=== PATIENT | male | born 1955 | race Caucasian/White ===

== ENCOUNTER 2019-07-10 06:12 | Day surgery (SDC) | payer MEDICAID ==
[~2019-07-10] VITALS: Ht 188 cm; Wt 108.9 kg
[~2019-07-10 06:12] MED LIST: ARIP15TA6 PO; ASPI-404 PO; ESOM20CA PO; GABA800T97 PO; TAMS0.4C36 PO
[2019-07-10] MEDS ORDERED: ceFAZolin 1GM/50ML 100 ML IV ONE (06:50)
[2019-07-10] MEDS ORDERED: SUCCINYLCHOLINE CHLORIDE 20 MG/ML 10ML VIAL IV ONE (07:12)
[2019-07-10] MEDS ORDERED: LIDOCAINE 1% (LOCAL ANESTH.) PF 5ml SDV ONE (07:12)
[2019-07-10] MEDS ORDERED: BUPIVACAINE 0.25% INJ 50ML VIAL ONE (07:15)
[2019-07-10] MEDS ORDERED: methylPREDNISolone ACETATE 80 MG/ML VL ONE (07:15)
[2019-07-10] MEDS ORDERED: MIDAZOLAM HCL 1MG/1ML-2 ML VIAL ONE (07:18)
[2019-07-10] MEDS ORDERED: ROCURONIUM 10MG/ML 10ML VIAL IV ONE (07:18)
[2019-07-10] MEDS ORDERED: METOCLOPRAMIDE HCL 5MG/ml INJ 2ml VIAL ONE (07:18)
[2019-07-10] MEDS ORDERED: PROPOFOL 10 MG/ML 20 ML IV ONE (07:18)
[2019-07-10] MEDS ORDERED: fentaNYL CITRATE 100 MCG/2 ML VL ONE (07:29)
[2019-07-10] MEDS ORDERED: ONDANSETRON HCL 4 MG/2 ML VIAL IV PRN (07:45)
[2019-07-10] MEDS ORDERED: NALOXONE HCL 0.4 MG/ML VIAL IV PRN (07:45)
[2019-07-10] MEDS ORDERED: HYDROmorphone HCL 2 MG/ML VL IV PRN ×2 (07:45)
[2019-07-10] MEDS ORDERED: KETOROLAC TROMETH 30 MG/ML 1ML VIAL ONE (07:51)
[2019-07-10] MEDS ORDERED: NEOSTIGMINE 1 MG/ML INJ (10mg/10ML VIAL) ONE (08:05)
[2019-07-10] MEDS ORDERED: GLYCOPYRROLATE 0.2 MG/ML 1ML VIAL ONE (08:05)
[2019-07-10 09:12] VITALS: BP 130/89
== END 2019-07-10 09:45 | disposition home or self-care (01) ==
LOC: SUR 06:12
PROVIDERS: ATTEND Orthopaedic Surgery Adult Reconstructive Orthopaedic Surgery
DX: S83.272A Complex tear of lateral meniscus, current injury, left knee, initial encounter (principal); S83.242A Other tear of medial meniscus, current injury, left knee, initial encounter; Z11.59 Encounter for screening for other viral diseases; M17.12 Unilateral primary osteoarthritis, left knee; Z87.891 Personal history of nicotine dependence; Z98.890 Other specified postprocedural states; Z79.82 Long term (current) use of aspirin; Z79.899 Other long term (current) drug therapy; X58.XXXA Exposure to other specified factors, initial encounter; Y93.89 Activity, other specified; Y92.89 Other specified places as the place of occurrence of the external cause; Y99.8 Other external cause status
CPT/HCPCS: 29880; 87635; J0330; J0690; J1040; J1885; J2250; J2704; J2765; J3010; J3490